=== PATIENT | male | born 1980 | race Caucasian/White ===

== ENCOUNTER 2019-10-08 05:15 | Day surgery (SDC) | payer BC, OTHER ==
[~2019-10-08] VITALS: Ht 172.7 cm; Wt 99.0 kg
[2019-10-08] MEDS ORDERED: LACTATED RINGERS 1,000 ML IV SCH (05:58)
[2019-10-08 06:00] VITALS: BP 144/96
[2019-10-08] MEDS ORDERED: EPINEPHRINE 1 MG/ML, 1ML ONE (06:15)
[2019-10-08] MEDS ORDERED: BUPIVACAINE/PF 0.5% ONE (06:15)
[2019-10-08] MEDS ORDERED: PANT40TA5 PO (06:29)
[2019-10-08] MEDS ORDERED: MIDAZOLAM 1 MG/ML, 2ML ONE (06:48)
[2019-10-08] MEDS ORDERED: FENTANYL PF 100 MCG/2ML ONE ×2 (06:48→08:25)
[2019-10-08] MEDS ORDERED: ROCURONIUM 10MG/ML,5ML ONE (07:12)
[2019-10-08] MEDS ORDERED: NEOSTIGMINE 1 MG/ML, 10ML ONE (07:12)
[2019-10-08] MEDS ORDERED: CEFAZOLIN 1,000 MG ONE (07:12)
[2019-10-08] MEDS ORDERED: PROPOFOL 10 MG/ML, 20ML ONE (07:12)
[2019-10-08] MEDS ORDERED: GLYCOPYRROLATE 0.2MG/1ML, 5ML ONE (07:12)
[2019-10-08] MEDS ORDERED: DEXAMETHASONE 4 MG/ML, 1ML ONE (07:12)
[2019-10-08] MEDS ORDERED: SUCCINYLCHOLINE 20 MG/ML, 10ML ONE (07:12)
[2019-10-08] MEDS ORDERED: ONDANSETRON 2MG/ML, 2ML ONE (07:12)
[2019-10-08] MEDS ORDERED: MEPERIDINE/PF 50 MG/ML ONE (07:12)
[2019-10-08] MEDS ORDERED: HYDROmorphone 2 MG/ML, 1ML IVPush PRN (07:30)
[2019-10-08] MEDS ORDERED: PROMETHAZINE 25 MG/ML, 1ML IV PRN (07:30)
[2019-10-08] MEDS ORDERED: LORazepam 2 MG/ML, 1ML IVPush PRN (07:30)
[2019-10-08] MEDS ORDERED: ONDANSETRON 2MG/ML, 2ML IV PRN (07:30)
[2019-10-08] MEDS ORDERED: ONDANSETRON ODT 8 MG PO PRN (07:30)
[2019-10-08] MEDS ORDERED: ACETAMINOPHEN 325 MG TABLET PO PRN (07:30)
[2019-10-08] MEDS ORDERED: OXYcodone 5 MG/5 ML ORAL.SOL UDC PO PRN (07:30)
[2019-10-08] MEDS ORDERED: MEPERIDINE/PF 25MG/ML,1ML IVPush PRN (07:30)
[2019-10-08] MEDS ORDERED: OXYcodone 5 MG/5 ML ORAL.SOL UDC ONE (08:25)
[2019-10-08] MEDS ORDERED: ACETAMINOPHEN 650 MG/20.3 ML UDC ONE (08:25)
[2019-10-08] MEDS: FENTANYL PF 100 MCG/2ML IV PRN ×2 (08:30→08:36)
== END 2019-10-08 11:00 | disposition home or self-care (01) ==
LOC: OUT 05:15
PROVIDERS: ATTEND Specialist
DX: J35.01 Chronic tonsillitis (principal); J35.8 Other chronic diseases of tonsils and adenoids; G47.30 Sleep apnea, unspecified; R06.5 Mouth breathing; K21.9 Gastro-esophageal reflux disease without esophagitis; Z79.899 Other long term (current) drug therapy
CPT/HCPCS: 42826; 88304; J0171; J0330; J0690; J1100; J2175; J2250; J2405; J2704; J2710; J3010; J7120